=== PATIENT | female | born 1965 | race Caucasian/White ===

== ENCOUNTER → 2020-04-08 | Outpatient (CLI) | payer OTHER ==
--- NOTE | 2020-04-09 12:23 | MAM ---
EXAM DESCRIPTION: 3D Screening BILATERAL : Digital Mammography. CLINICAL HISTORY: 54 years Female SCREEN . No complaints or personal history of breast cancer. Mother with breast cancer at age 50. Menarche age 9. Childbirth age 18. Menopause age 53. No HRT.. Lifetime risk of developing breast cancer (Tyrer-Cuzick model)(%): 16.1. COMPARISON: Baseline study at this facility. TECHNIQUE: Bilateral CC and MLO projection full-field images, digital tomosynthesis mammographic technique. Bilateral digital 2-D full-field MLO images. CAD available for 2-D images. FINDINGS: The breast parenchymal density pattern is: Scattered areas of fibroglandular density. No skin thickening or nipple retraction. Bilateral solitary microcalcifications. Focal asymmetry lateral upper outer quadrant posterior third right breast 10:00-10:30. More dense than surrounding fibroglandular tissues. Possible underlying mass/lymph node. No focal, stellate mass or density, focal asymmetry , and no suspicious microcalcifications left breast IMPRESSION: BI-RADS CATEGORY: 0 - INCOMPLETE- Need additional imaging evaluation. RECOMMENDATIONS: FOLLOW-UP: Recall for additional imaging: Diagnostic tomosynthesis right breast CC and LM projections full-field. Directed right breast ultrasound region of interest upper outer quadrant posterior.. Written communication concerning the IMPRESSION and Follow-up, will be mailed to the patient and referring health care provider. Electronically signed by: Vinh Chance MD 04/09/2020 12:21 PM CDT
== END ==
LOC: MAMMO 09:48
PROVIDERS: ATTEND Nurse Practitioner Family
DX: Z12.31 Encounter for screening mammogram for malignant neoplasm of breast (principal)

== ENCOUNTER → 2020-05-06 | Outpatient (CLI) | payer OTHER ==
--- NOTE | 2020-05-07 16:44 | MAM ---
EXAM DESCRIPTION: 3D Diagnostic, Right (accession [id number]), Breast,Right (accession [id number]): Ultrasound CLINICAL HISTORY: 54 yearsFemale focal asymmetry right breast . No mass or pain in right breast. Lifetime risk of developing breast cancer (Tyrer-Cuzick model)(%): 16.1. COMPARISON: Bilateral screening digital breast tomosynthesis TECHNIQUE: Bilateral right breast projection full-field images, digital tomosynthesis technique. Right breast 2-D digital full-field images: LM and CC projections. CAD available for 2-D images.. Transcutaneous scanning of the upper outer quadrant lateral posterior right breast utilizing diallo-scale and Doppler modes. Scanning performed by the community service representative and Dr. Chance. FINDINGS: The breast parenchymal density pattern is: Scattered areas of fibroglandular density. No skin thickening or nipple retraction skin calcifications and solitary microcalcifications. Platelike area of density in the region of interest on the lateral medial tomosynthesis. No suspicious microcalcifications. Region of interest right breast. Ultrasound: Hypoechoic circumscribed object most likely a lymph node with central and eccentric echogenicity. Dimensions 8.4 x 5.5 x 3.1 mm with parallel orientation and mostly posterior acoustic enhancement. No vascularity. Most likely a lymph node. IMPRESSION: Benign exam. BIRAD CATEGORY: 2 BENIGN FINDINGS. RECOMMENDATIONS: FOLLOW UP: Return to routine digital bilateral mammographic screening, one year interval from March 2020. Written communication explaining the IMPRESSION and follow-up, will be mailed to the patient and referring health care provider. The FINDINGS and the FOLLOW-UP plan were reviewed in person with the patient after the examination. According to the [employer], yearly mammograms are recommended starting at age 40 and continuing as long as a woman is in good health. Any breast change noted on a breast self-exam should be reported promptly to the patient's healthcare provider. Breast MRI is recommended for women with an approximately 20-25% or greater lifetime risk of breast cancer, including women with a strong family history of breast or ovarian cancer and women who have been treated for Hodgkin's disease. A negative mammographic report should not delay tissue diagnosis in patients with significant clinical history or physical findings. Extremely dense breast tissue limits the sensitivity of digital mammography. Electronically signed by: Vinh Chance MD 05/07/2020 4:43 PM CDT
== END ==
LOC: MAMMO 12:30
PROVIDERS: ATTEND Nurse Practitioner Family
DX: R92.8 Other abnormal and inconclusive findings on diagnostic imaging of breast (principal)
CPT/HCPCS: 76641; 77065; G0279